=== PATIENT | female | born 1975 | race Caucasian/White ===

== ENCOUNTER 2021-12-06 13:54 | Emergency (ER) | payer MEDICAID ==
[~2021-12-06] VITALS: Ht 162.6 cm; Wt 65.3 kg
[2021-12-06 14:06] VITALS: BP 136/87
--- NOTE | 2021-12-06 14:15 | NUR ---
PT W/C ASSISTED TO BED 01.
[2021-12-06] MEDS ORDERED: fentaNYL citrate 0.05 MG/ML VIAL IVP ONE (14:30)
--- NOTE | 2021-12-06 14:30 | NUR ---
46 Y/O FEMALE BIB SON C/O FALL FROM CHEST HIGH FROM A LADDER, PER PT SHE HIT HER HEAD AND FELL ON HER LEFT RIB. GUARDING BEHAVIOR NOTED NKA PMH: DENIES
[2021-12-06] MEDS ORDERED: ACET-8386 PO (16:07)
[2021-12-06] MEDS ORDERED: KETOROLAC 30 MG/ML VIAL IVP ONE (16:15)
[2021-12-06 17:30] VITALS: BP 123/79
--- NOTE | 2021-12-06 17:30 | NUR ---
dPatient discharged with v/s stable. Written and verbal after care instructions given. Patient alert, oriented and verbalized understanding of instructions. Ambulatory with steady gait. All questions addressed prior to discharge. ID band removed. Patient advised to follow up with PMD. Rx of Hydrocodone-Acetaminophen given. Opportunity to ask questions provided and answered.
--- NOTE | 2021-12-06 17:30 | NUR ---
The patient's care was reviewed and supervised by Inna Licona RN.
== END 2021-12-06 17:30 | disposition home or self-care (01) ==
LOC: MED 13:54
DX: S22.32XA Fracture of one rib, left side, initial encounter for closed fracture (principal); S02.2XXA Fracture of nasal bones, initial encounter for closed fracture; W18.30XA Fall on same level, unspecified, initial encounter; Y93.89 Activity, other specified; Y92.89 Other specified places as the place of occurrence of the external cause; Y99.8 Other external cause status
CPT/HCPCS: 70450; 70486; 71101; 81025; 96374; 99284; J1885

== ENCOUNTER 2022-08-25 23:49 | Emergency (ER) | payer MEDICAID ==
[~2022-08-25] VITALS: Ht 162.6 cm; Wt 67.1 kg
[~2022-08-25 23:49] MED LIST: ACET-8905 PO
[2022-08-26 00:23] VITALS: BP 125/76
--- NOTE | 2022-08-26 01:03 | NUR ---
Dr. Vergara examining patient.
[2022-08-26] MEDS ORDERED: DICYCLOMINE HCL LIQUID 20 MG, ALUMINUM HYD/MAG/SIMETHICONE 30 ML, LIDOCAINE VISCOUS 2% ... PO ONE ×3 (01:05)
[2022-08-26 01:14] LABS: BASOPHILS % (AUTO) 0.3 % (0.0-2.0); EOSINOPHILS # (AUTO) 0.9 K/uL (0-0.4); EOSINOPHILS % (AUTO) 9.2 % (0.0-4.0); HEMATOCRIT 45.1 % (36-48); HEMOGLOBIN 15.2 g/dL (12.0-16.0); LYMPHOCYTES # (AUTO) 1.4 K/uL (2.5-16.5); MEAN CORPUSCULAR HEMOGLOBIN 31 pg (27-31); MEAN CORPUSCULAR HGB CONC 34 g/dL (33-37); MEAN CORPUSCULAR VOLUME 91.9 fL (80-94); MONOCYTES # (AUTO) 0.6 K/uL (0.8-1.0); MONOCYTES % (AUTO) 6.2 % (1.7-9.3); NEUTROPHILS # (AUTO) 6.8 K/uL (1.8-7.7); NEUTROPHILS % (AUTO) 70.3 % (42.2-75.2); PLATELET COUNT (AUTO) 305 K/uL (140-450); RED BLOOD CELL COUNT(AUTO) 4.91 MIL/uL (4.20-5.40); RED CELL DISTRIBUTION WIDTH 14.2 % (11.6-13.7); WHITE BLOOD COUNT (AUTO) 9.7 K/uL (4.8-10.8)
--- NOTE | 2022-08-26 01:15 | NUR ---
Patient taken to bed 5.
[2022-08-26 01:43] LABS: ALBUMIN 3.9 g/dL (3.4-5.0); ANION GAP 10.3 (8-16); CARBON DIOXIDE 31.2 mmol/L (21-32); CREATININE 0.9 mg/dL (0.6-1.3); POTASSIUM 3.5 mmol/L (3.5-5.1); TOTAL BILIRUBIN 0.4 mg/dL (0.0-1.0)
[2022-08-26] MEDS ORDERED: ALUMINUM HYD/MAG/SIMETHICONE 30 ML UDC ONE (01:57)
[2022-08-26] MEDS ORDERED: DICYCLOMINE HCL LIQUID 10 MG/5 ML UDC ONE (01:57)
--- NOTE | 2022-08-26 02:00 | NUR ---
pt said she is NOT
[2022-08-26] MEDS ORDERED: FAMO-90 PO (02:10)
[2022-08-26] MEDS ORDERED: SUCR1TAB35 PO (02:10)
[2022-08-26] MEDS ORDERED: ONDA-188 PO (02:10)
[2022-08-26] MEDS ORDERED: SIME125T38 PO (02:10)
== END 2022-08-26 02:30 | disposition home or self-care (01) ==
LOC: MED 23:49
DX: K29.70 Gastritis, unspecified, without bleeding (principal); Z79.899 Other long term (current) drug therapy
CPT/HCPCS: 36415; 80053; 83690; 85025; 99283